=== PATIENT | male | born 1975 | race Caucasian/White ===

== ENCOUNTER 2017-01-13 23:00 | Emergency (ER) | payer OTHER ==
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
[~2017-01-13 23:00] MED LIST: ACULAR10 ML OU; AFRIN3 ML; ALBUTEROL17 G1; ALBUTEROL17 G1 IH; ALBUTEROL17 GM INH; AMOXICILLIN500 M1 PO; AUGMENTIN PO; BACITRACIN30 GM TOP; BACTRIM DS TABL1 TAB PO; BENZONATATE PO; CILOXAN5 ML OP; DICLOFENAC PO; DOXYCYCLINE150 MG PO; ELIMITE60 GM TOP; FLEXERIL PO; ILOTYCIN OS; LORTAB 2.5/5001 TAB PO; LORTAB 7.5-5001 TAB PO; MOBIC PO; NAPROSYN250 M1 PO; NEURONTIN PO; NO MEDICATIONS; PERCOCET 7.5-31 EACH PO; POLYTRIM EYE DR10 ML OP; PREDNISONE PO; ROBAXIN500 MG PO; SUDAFED30 M1 PO; VISTARIL PO; ZITHROMAX PO
== END 2017-01-14 01:55 | disposition home or self-care (01) ==
LOC: SED 23:00
DX: S16.1XXA Strain of muscle, fascia and tendon at neck level, initial encounter (principal); S46.911A Strain of unspecified muscle, fascia and tendon at shoulder and upper arm level, right arm, initial encounter; V49.9XXA Car occupant (driver) (passenger) injured in unspecified traffic accident, initial encounter
CPT/HCPCS: 72125; 99283; 99284

== ENCOUNTER 2017-01-19 12:29 | Emergency (ER) | payer OTHER | END 2017-01-19 13:04 | disposition home or self-care (01) | LOC: SED 12:29 | DX: H60.91 Unspecified otitis externa, right ear (principal) | CPT/HCPCS: 99282 ==